=== PATIENT | male | born 1955 | race Caucasian/White ===

== ENCOUNTER 2023-08-10 11:07 | Day surgery (SDC) | payer OTHER ==
[2023-08-10] MEDS ORDERED: LACTATED RINGERS SOLUTION 1,000 ML/1,000 ML INFUS.BAG IV STA (11:12)
[2023-08-10] MEDS ORDERED: ONDANSETRON 4 MG/2 ML VIAL IVPUSH ONE (11:12)
[2023-08-10] MEDS ORDERED: ACETAMINOPHEN 1000 MG/100 ML BAG IVPB ONE (11:12)
[2023-08-10] MEDS ORDERED: ONDANSETRON 4 MG/2 ML VIAL ONE (11:44)
[2023-08-10] MEDS ORDERED: ACETAMINOPHEN INJECTION 100 ML IVPB ONE (11:44)
[2023-08-10 11:57] LABS: HEMATOCRIT 46.3 % (35.4-49); HEMOGLOBIN 15.3 G/dL (11.7-16.9); MCH 28.4 pg (25.7-33.7); MEAN PLT VOLUME 9.2 fl (7.5-11.1); PLATELET COUNT 180.5 10^3/uL (134-434); RBC 5.38 10^6/uL (4.00-5.60); RDW 15.2 % (11.9-15.9)
[2023-08-10 12:09] LABS: ADD RBC MORPHOLOGY YES
[2023-08-10 12:14] LABS: ALBUMIN 4.6 g/dl (3.4-5.0); BILIRUBIN,TOTAL 0.5 mg/dl (0.2-1); CALCIUM 9.7 mg/dl (8.5-10.1); CREATININE 1.2 mg/dl (0.6-1.3); POTASSIUM 4.2 mmol/L (3.5-5.1); TOT PROT 7.3 g/dl (6.4-8.2)
[2023-08-10 12:31] LABS: INR 1.03 (0.83-1.09)
[2023-08-10 12:33] LABS: ACTIVATED PTT 29.7 SECONDS (25.2-36.5)
[2023-08-10 14:18] LABS: ANISOCYTOSIS 1+; PLATELET ESTIMATE ADEQUATE
[2023-08-10 14:29] LABS: EPITHELIAL CELLS 0-5 /hpf
[2023-08-10] MEDS ORDERED: KETOROLAC TROMETHAMINE 15 MG/ML VIAL IVPUSH ONE (15:50)
[2023-08-10] MEDS ORDERED: TAMSULOSIN HCL 0.4 MG CAP PO ONE (15:50)
[2023-08-10] MEDS ORDERED: KETOROLAC TROMETHAMINE 15 MG/ML VIAL ONE (15:53)
[2023-08-10] MEDS ORDERED: TAMSULOSIN HCL 0.4 MG CAP ONE (15:53)
[2023-08-11 03:48] VITALS: BMI 33.4
[2023-08-11] MEDS ORDERED: SODIUM CHLORIDE 1,000 ML IV SCH ×3 (04:15→15:02)
[2023-08-11] MEDS ORDERED: KETOROLAC TROMETHAMINE 15 MG/ML VIAL IVPUSH PRN ×2 (04:25→15:02)
[2023-08-11] MEDS ORDERED: TAMSULOSIN HCL 0.4 MG CAP PO SCH (08:30)
[2023-08-11 09:24] LABS: BASO % 0.3 % (0-2.0); EOS % 0.6 % (0-4.5); HEMATOCRIT 39.4 % (35.4-49); HEMOGLOBIN 12.8 GM/dL (11.7-16.9); LYMPH % 13.3 % (8-40); MCH 27.8 pg (25.7-33.7); MCHC 32.5 g/dl (32.0-35.9); MEAN CELL VOLUME 85.6 fl (80-96); MEAN PLT VOLUME 8.8 fl (7.5-11.1); MONO % 9.6 % (3.8-10.2); NEUT % 76.2 % (42.8-82.8); PLATELET COUNT 160 10^3/uL (134-434); RDW 14.7 % (11.9-15.9); WHITE BLOOD COUNT 9.7 K/mm3 (4.0-10.0)
[2023-08-11 09:42] LABS: POTASSIUM 4.1 mmol/L (3.5-5.1)
[2023-08-11 09:54] LABS: ALBUMIN 3.2 g/dl (3.4-5.0); BLOOD UREA NITROGEN 20.2 mg/dL (7-18); CALCIUM 8.7 mg/dL (8.5-10.1)
[2023-08-11 09:56] LABS: MAGNESIUM 2.3 mg/dL (1.8-2.4)
[2023-08-11 09:58] LABS: CREATININE 1.1 mg/dL (0.55-1.3); PHOSPHOROUS 3.2 mg/dL (2.5-4.9)
[2023-08-11 10:00] LABS: TOT PROT 6.7 g/dl (6.4-8.2)
[2023-08-11] MEDS ORDERED: LOSARTAN POTASSIUM 50 MG TABLET PO SCH (10:00)
[2023-08-11 10:01] LABS: BILIRUBIN,TOTAL 0.6 mg/dL (0.2-1)
[2023-08-11] MEDS ORDERED: PROPOFOL 20 ML ONE (13:11)
[2023-08-11] MEDS ORDERED: MIDAZOLAM HCL 2 MG/2 ML SINGLE DOSE VIAL ONE (13:12)
[2023-08-11] MEDS ORDERED: ceFAZolin SODIUM 1 GM VIAL ONE (13:29)
[2023-08-11] MEDS ORDERED: DEXAMETHASONE SOD PHOSPHATE 4 MG/1 ML VIAL ONE (13:29)
[2023-08-11] MEDS ORDERED: ceFAZolin SODIUM 1 GM VIAL IVPB ONE (13:30)
[2023-08-11] MEDS ORDERED: KETOROLAC TROMETHAMINE 30 MG/1 ML VIAL ONE (14:21)
[2023-08-11] MEDS ORDERED: ONDANSETRON 4 MG/2 ML VIAL ONE (14:21)
[2023-08-11] MEDS ORDERED: ACETAMINOPHEN 1000 MG/100 ML BAG IVPB ONE (14:38)
[2023-08-11] MEDS ORDERED: PROMETHAZINE HCL 25 MG/1 ML VIAL IVPB PRN (14:38)
[2023-08-11] MEDS ORDERED: ONDANSETRON 4 MG/2 ML VIAL IVPUSH PRN (14:38)
[2023-08-11] MEDS ORDERED: ACETAMINOPHEN INJECTION 100 ML IVPB ONE (14:50)
[2023-08-11 15:42] VITALS: RESP 18
[2023-08-11] MEDS: LACTATED RINGERS SOLUTION 1,000 ML IV SCH (17:17)
[2023-08-11 20:33] LABS: HIV INTERPRETATION NEGATIVE (NEGATIVE)
[2023-08-11] MEDS ORDERED: MELATONIN 5 MG TABLETS PO PRN (21:21)
[2023-08-11] MEDS ORDERED: KETOROLAC TROMETHAMINE 15 MG/ML VIAL IVPUSH ONE (22:15)
[2023-08-12] MEDS: LACTATED RINGERS SOLUTION 1,000 ML IV SCH (06:20)
[2023-08-12] MEDS ORDERED: TAMSULOSIN HCL 0.4 MG CAP PO SCH (08:30)
[2023-08-12 09:26] LABS: BASO % 0.2 % (0-2.0); EOS % 0.1 % (0-4.5); HEMATOCRIT 37.5 % (35.4-49); LYMPH % 10.7 % (8-40); MCH 27.4 pg (25.7-33.7); MCHC 32.1 g/dl (32.0-35.9); MEAN CELL VOLUME 85.5 fl (80-96); MEAN PLT VOLUME 9.2 fl (7.5-11.1); MONO % 9.1 % (3.8-10.2); NEUT % 79.9 % (42.8-82.8); PLATELET COUNT 168 10^3/uL (134-434); RBC 4.38 M/mm3 (4.00-5.60); RDW 14.8 % (11.9-15.9); WHITE BLOOD COUNT 11.5 K/mm3 (4.0-10.0)
[2023-08-12 09:49] LABS: POTASSIUM 4.1 mmol/L (3.5-5.1)
[2023-08-12 09:55] LABS: CALCIUM 8.4 mg/dL (8.5-10.1)
[2023-08-12 09:57] LABS: ALBUMIN 2.9 g/dl (3.4-5.0); BLOOD UREA NITROGEN 21.5 mg/dL (7-18)
[2023-08-12 10:00] LABS: BILIRUBIN,TOTAL 0.4 mg/dL (0.2-1)
[2023-08-12] MEDS ORDERED: LOSARTAN POTASSIUM 50 MG TABLET PO SCH (10:00)
[2023-08-12 10:01] LABS: TOT PROT 6.2 g/dl (6.4-8.2)
[2023-08-12] MEDS ORDERED: POLYETHYLENE GLYCOL (HEALTHYLAX) 3350 17 GM PACKET PO ONE (13:30)
[2023-08-12 15:38] VITALS: BP 121/58; PULSE 65; TEMP 98.6
== END 2023-08-12 18:00 | disposition home or self-care (01) ==
LOC: FER 11:07 → UNDOADMIN 08-11 02:50 → J8W 08-11 02:50 → JASUSAT 08-12 13:57 → J8W 08-12 14:10 → JASUSAT 08-12 18:00
PROVIDERS: ATTEND Internal Medicine
PROC: 0TC78ZZ Extirpation of Matter from Left Ureter, Via Natural or Artificial Opening Endoscopic (ICD-10-PCS; principal; 2023-08-12)
PROC: 0T778DZ Dilation of Left Ureter with Intraluminal Device, Via Natural or Artificial Opening Endoscopic (ICD-10-PCS; 2023-08-12)
DX: N13.2 Hydronephrosis with renal and ureteral calculous obstruction (principal)
CPT/HCPCS: 0241U-QW; 36415; 74177-TC; 76000-TC-FY; 80053; 81003; 81015; 82360; 83036; 83690; 83735; 84100; 84460; 85025; 85610; 85730; 86803; 86850; 86900; 86901; 87086; 87340; 87389; 94760; 99285-25; C1758; C2617; Q9967